=== PATIENT | male | born 1990 | race Caucasian/White ===

== ENCOUNTER 2017-01-15 22:37 | Emergency (ER) | payer SELFPAY | END 2017-01-16 04:23 | disposition home or self-care (01) | LOC: CED 22:37 | DX: S80.811A Abrasion, right lower leg, initial encounter (principal); L02.415 Cutaneous abscess of right lower limb; L03.115 Cellulitis of right lower limb; F17.210 Nicotine dependence, cigarettes, uncomplicated; Z98.890 Other specified postprocedural states; X58.XXXA Exposure to other specified factors, initial encounter; Y92.89 Other specified places as the place of occurrence of the external cause | CPT/HCPCS: 10060; 99283 ==